=== PATIENT | male | born 1995 | race Caucasian/White ===

== ENCOUNTER 2016-11-26 00:45 | Emergency (ER) | payer BC ==
[~2016-11-26] VITALS: Ht 175.3 cm; Wt 76.7 kg
[~2016-11-26 00:45] MED LIST: ACET-1311 PO
[2016-11-26 00:49] VITALS: TEMP 36.5; Ht 175.3 cm; Wt 76.7 kg
[2016-11-26] MEDS ORDERED: LIDOCAINE/EPINEPH/TETRACAINE 1 EA SYR EXT STA (01:02)
[2016-11-26 02:04] VITALS: BP 108/70; PULSE 80; O2SAT 99
--- NOTE | 2016-11-26 04:00 | EMERGENCY ROOM VISIT NOTE ---
History First contact with patient: 00:57 Chief Complaint: HEAD INJURY (MINOR) Stated Complaint: HIT HEAD,BLEEDING History of Present Illness The patient is a 21 year old male who presents to the Emergency Room with complaints of head injury with facial laceration after he tripped while intoxicated tonight. Patient denies loss of conscious, dental pain, neck pain, chest pain, dyspnea, abdominal pain, drug use, numbness, tingling or any other medical complaints. Tetanus is current. He states he has had some alcohol. Review of Systems See HPI for pertinent positives & negatives. A total of 10 systems reviewed and were otherwise negative. Past Medical/Surgical History Medical Problems: (1) No Known Active Medical Problems Social History Smoking Status: Never Smoker Alcohol Use: occasionally Marital Status: single Housing Status: lives with family Occupation Status: student Current/Historical Medications No Active Prescriptions or Reported Meds Allergies Coded Allergies: No Known Allergies (Unverified , 11/26/16) Physical Exam Vital Signs Date Time Temp Pulse Resp B/P Pulse Ox O2 Delivery O2 Flow Rate FiO2 11/26/16 02:04 80 16 108/70 99 11/26/16 00:49 36.5 119 18 148/88 95 Room Air Pain Rating (0-10): 0 Physical Exam PHYSICAL EXAM: VITALS: Vitals are noted on the nurse's note and reviewed by myself. Vital signs stable. GENERAL: Pleasant male with EtOH odor, in no acute distress, nondiaphoretic, well-developed well-nourished. SKIN: 2.6 white eyebrow laceration that is gaping and appears clean, The rest of the skin was without obvious lacerations or abrasions. Capillary reflex less than 2 seconds. HEAD: Normocephalic EARS: External auditory canals clear, tympanic membranes pearly angulo without erythema or effusion bilaterally. No hemotympanums. No alarcon sign. No mastoid tenderness. EYES: Pupils equal round and reactive to light and accommodation. Conjunctivae with injection, sclerae without icterus. Extraocular movements intact. NOSE: Patent, turbinates without inflammation or discharge. No sinus tenderness. No septal hematoma or bleeding. FACE: No facial bone tenderness. Full range of motion of the jaw without tenderness. MOUTH: Mucous membranes moist. Pharynx without erythema or exudate. Uvula midline. Airway patent. Tongue does not deviate. NECK: Supple without nuchal rigidity. Cervical spine is nontender. Full range of motion of the neck without tenderness. No JVD. HEART: Regular rate and rhythm without murmurs gallops or rubs. LUNGS: Clear to auscultation bilaterally without wheezes, rales or rhonchi. No dullness to percussion. No retractions or accessory muscle use. No chest wall tenderness. ABDOMEN: Positive bowel sounds x 4. Normal tympanic percussion. Soft, nontender, without masses or organomegaly. No guarding or rebound tenderness. MUSCULOSKELETAL: No tenderness of the thoracic or lumbar spine. No tenderness with pelvic rocking. Full range of motion without tenderness to palpation in all extremities. NEURO: Patient was alert and oriented to person place and time. Normal sensation to light and sharp touch. No focal neurological deficits. Medical Decision & Procedures Medications Administered Medications (Trade) Dose Ordered Sig/Ramy Route Start Time Stop Time Status Last Admin Dose Admin Tetracaine/ Epinephrine/ Lidocaine (L.e.t. Gel 4%/ 1:100/0.5%) 1 ea NOW STAT EXT 11/26/16 01:02 11/26/16 01:03 DC 11/26/16 01:02 1 EA Procedure Location: right eyebrow Total length: 2.6cm Complexity: simple Verbal consent was obtained after the risks and benefits were explained, including but not limited to bleeding, scarring, infection, pain, and bone/joint /nerve damage. At this time, the risks of the procedure are less than the risks of NOT performing the procedure. A time out was taken and the correct patient and site identified. The skin was prepped with betadine. The target area was anesthetized with LET. Copious irrigation was performed using NSS. The skin was re-prepped with betadine and a sterile field set. The wound was explored for foreign bodies and none found. Examination revealed no injury to deep structures such as tendons, bone, or significant blood vessels. Debridement was not performed. The wound edges were approximated using 4, 6-0 simple interrupted nylon sutures. Hemostasis and excellent approximation was achieved. Antibacterial ointment and a sterile dressing applied. Detailed wound care instructions and signs and symptoms of infection reviewed with the pt. No complications and the patient tolerated the procedure well. ED Course Prior records/ancillary studies reviewed. Triage Nursing notes reviewed. Additional history obtained from friends. The patient's history was concerning for traumatic head injury Differential diagnosis: Etiologies such as concussion, contusion, fracture, subdural hematoma, epidural hematoma, intraparenchymal hemorrhage, as well as other traumatic pathologies were entertained. Physical examination findings: As above. ER treatment provided: Laceration repaired as above On reassessment the patient felt better. Diagnostics interpreted by me: Imaging studies: CTs were read by stat radiology and negative for fracture or bleed It appears the patient has a head injury who was intoxicated. Because of his intoxication CT imaging was ordered and was unremarkable as above. I gave my usual and customary discussion regarding this issue. Patient and friends were counseled on head injury signs and symptoms and laceration care. They're advised to follow-up health services in a few days or here in the ER sooner for headache, fevers, confusion, worsening signs or symptoms or as needed. No other injuries are noted. He was strongly encouraged no more alcohol tonight or the weekend. By the evaluation outlined above emergent etiologies such as fracture, subdural hematoma, epidural hematoma, intraparenchymal hemorrhage, as well as others were deemed relatively unlikely. The pt informed about the findings as listed above. All questions were answered and pleased with the treatment. Return instructions were outlined and the patient was discharged in stable condition. Referral: The patient was referred back to their primary care physician for follow-up in 2 to 3 days for a recheck of the current condition. Medical Decision As above Impression Primary Impression: Head injury Additional Impressions: Facial laceration Fall Departure Information Dispostion Home / Self-Care Condition GOOD Prescriptions No Active Prescriptions or Reported Meds Forms HOME CARE DOCUMENTATION FORM, IMPORTANT VISIT INFORMATION Patient Instructions [facility], ED Head Injury Closed, ED Laceration All Additional Instructions Read head injury handout and return for any symptoms. Tylenol 1000 mg as needed for pain (Maximum 3000 mg Tylenol in 24 hr period). Avoid alcohol and contact sports/activities for one week and follow up with family doctor prior to returning to these activities if still symptomatic. Ice and elevate head. Keep wound clean and dry. Do not allow any crusting or dried blood to accumulate on sutures. If this occurs, use a 1:1 solution of hydrogen peroxide/ water on a Q-tip to clean the wound. Use an antibiotic ointment for 3-4 days, then let wound dry. Suture removal in 5-7 days. Return sooner for any signs of infection (increasing redness, swelling, drainage). Ice and elevate for swelling and pain. Keep covered when in sun until sutures removed then SPF 50 or higher for one year. Vitamin E oil if desired two weeks after suture removal for reduction of scar Return to ER sooner for headache, fevers, confusion, redness, drainage, worsening signs or symptoms or as needed. Problem Qualifiers Primary Impression: Head injury Encounter type: initial encounter Qualified Codes: S09.90XA - Unspecified injury of head, initial encounter Additional Impressions: Facial laceration Encounter type: initial encounter Qualified Codes: S01.81XA - Laceration without foreign body of other part of head, initial encounter Fall Encounter type: initial encounter Qualified Codes: W19.XXXA - Unspecified fall, initial encounter
--- NOTE | 2016-11-26 06:19 | DIAGNOSTIC IMAGING REPORT ---
HEAD CT NONCONTRAST CT DOSE: 1074.96 mGy.cm HISTORY: fall, etoh, head injury TECHNIQUE: Multiaxial CT images of the head were performed without the use of intravenous contrast. Automated exposure control was utilized for this study. Comparison: None. Findings: Mild motion artifact. Mild right periorbital soft tissue swelling. The paranasal sinuses and mastoid air cells are clear. The calvarium and skull base are intact. The ventricles and sulci are within normal limits. There is no mass, hematoma, midline shift, or acute infarct. Impression: Mild motion artifact. Mild right periorbital soft tissue swelling. No definite acute intracranial abnormality. Electronically signed by: Brian Cruz M.D. 11/26/2016 6:18 AM Dictated Date/Time: 11/26/2016 6:16 AM
== END 2016-11-26 02:05 | disposition home or self-care (01) ==
LOC: C.EDB 00:46
DX: S09.90XA Unspecified injury of head, initial encounter (principal); S01.81XA Laceration without foreign body of other part of head, initial encounter; W18.09XA Striking against other object with subsequent fall, initial encounter

== ENCOUNTER 2016-12-02 13:06 | Emergency (ER) | payer BC ==
[~2016-12-02] VITALS: Ht 175.3 cm; Wt 73.9 kg
[2016-12-02 13:15] VITALS: BP 126/75; PULSE 105; TEMP 37.2; O2SAT 98; Ht 175.3 cm; Wt 73.9 kg
--- NOTE | 2016-12-02 15:20 | EMERGENCY ROOM VISIT NOTE ---
ED Visit Note First contact with patient: 13:25 CHIEF COMPLAINT: Suture removal This patient returns to the ED today for removal of sutures that were placed 7 days ago. There has been no swelling, redness, or drainage from the wound. The patient feels like the laceration is healing well. REVIEW OF SYSTEMS: Head: No headache, injury or neck pain. Skin: No rash, new lesions, or masses. General: No fever or chills, fatigue, loss of appetite , or significant recent weight gain or loss. PMH: The patient is healthy; there is no significant medical or surgical history. SOCIAL HISTORY: Patient lives at home. PHYSICAL EXAM: Vital Signs: Reviewed Nurse's notes. There is a sutured wound on the right eyebrow with no signs of infection. There is no erythema, swelling , or tenderness. EMERGENCY DEPARTMENT COURSE: The sutures were removed without any difficulty and there was no separation of the wound edges. Problem List Medical Problems: (1) No Known Active Medical Problems Status: Chronic Current/Historical Medications No Active Prescriptions or Reported Meds Allergies Coded Allergies: No Known Allergies (Unverified , 12/02/16) Vital Signs Date Time Temp Pulse Resp B/P Pulse Ox O2 Delivery O2 Flow Rate FiO2 12/02/16 13:15 37.2 105 18 126/75 98 Departure Information Impression Primary Impression: Encounter for removal of sutures Dispostion Home / Self-Care Condition GOOD Prescriptions No Active Prescriptions or Reported Meds Referrals No Doctor, Assigned (PCP) Forms HOME CARE DOCUMENTATION FORM, IMPORTANT VISIT INFORMATION Patient Instructions [facility]
== END 2016-12-02 13:45 | disposition home or self-care (01) ==
LOC: C.EDB 13:07 → C.EDD 13:45
DX: S01.111D Laceration without foreign body of right eyelid and periocular area, subsequent encounter (principal); X58.XXXD Exposure to other specified factors, subsequent encounter

== ENCOUNTER 2016-12-19 18:02 | Emergency (ER) | payer BC ==
[~2016-12-19] VITALS: Ht 175.3 cm; Wt 73.0 kg
[2016-12-19 18:13] VITALS: TEMP 37.3; Ht 175.3 cm; Wt 73.0 kg
[2016-12-19] MEDS ORDERED: IBUPROFEN 600 MG TAB PO STA (18:42)
--- NOTE | 2016-12-19 19:11 | DIAGNOSTIC IMAGING REPORT ---
LEFT WRIST 5 VIEWS HISTORY: Left wrist pain, swelling COMPARISON: None. FINDINGS: Nondisplaced transverse mid to distal scaphoid fracture. No dislocation. Mild soft tissue swelling. No radiopaque foreign bodies. IMPRESSION: Nondisplaced mid to distal scaphoid fracture. Electronically signed by: Brian Cruz M.D. 12/19/2016 7:09 PM Dictated Date/Time: 12/19/2016 7:08 PM
[2016-12-19] MEDS ORDERED: HYDR-5688 PO (19:38)
[2016-12-19] MEDS ORDERED: NORCO 5/325MG HOME PACK PO ONE (19:45)
[2016-12-19 19:57] VITALS: BP 122/76; PULSE 99; O2SAT 98
--- NOTE | 2016-12-20 21:14 | EMERGENCY ROOM VISIT NOTE ---
ED Visit Note First contact with patient: 18:33 Chief Complaint: Left wrist pain. History of Present Illness: Mr. Garcia is a 21-year-old white male who ambulates into the ED accompanied by multiple friends his mother complaining of distal radius left pain. Patient reports approximately 4 hours ago he slipped and fell in the shower onto the outstretched left hand. Since that time he is having pain over the left wrist over the distal radius. He describes his pain as a combination of sharp and throbbing. The pain is nonradiating. Her pain worsens with palpation of the distal radius and the scaphoid. His pain also worsens with flexion, extension and radial and ulnar deviation of the wrist. He has not identified any alleviating factors related to the pain. He has not taken any medications for pain prior to arrival at the hospital. He denies any associated symptoms including shoulder pain, elbow pain, proximal forearm pain, hand pain, hand/finger weakness/numbness/tingling. Additionally he denies any previous significant injuries or surgeries to the left wrist or hand. Review of Systems: As noted above in history of present illness. Past Medical History: Patient denies. Current Medications: Patient denies. Allergies to Medications: Peanuts. Social History: Patient is not currently employed; he feels safe in his home environment; he denies tobacco use and Physical Examination: Vital Signs: Date Time Temp Pulse Resp B/P Pulse Ox O2 Delivery O2 Flow Rate FiO2 12/19/16 19:57 99 20 122/76 98 12/19/16 18:13 37.3 123 18 128/74 99 Room Air GENERAL: 21-year-old male in moderate distress due to pain, nontoxic-appearing, afebrile and hemodynamically stable. NEUROLOGICAL: Awake, alert and oriented to person, place and time. Answering questions appropriately and following commands. SKIN: Warm, dry and pink. No soft tissue trauma noted. LEFT UPPER EXTREMITY: No gross bony deformity. No tenderness in the shoulder, humerus, elbow or proximal forearm. Moderate tenderness over the distal radius and any anatomical snuffbox with mild swelling but no palpable deformity or crepitus. He refused to do range of motion exercises at the wrist due to pain. There was no tenderness throughout the hand or the fingers. He was able to wiggle the fingers. Throughout the hand the skin was warm and pink and capillary refill was brisk. He was able to distinguish light sensations through all dermatomes of the hand. ED Course: Patient is assessed as noted above. Patient was given 600 mg of ibuprofen and ice for pain and comfort Left Wrist X-Rays with Navicular View: Were read by myself and the radiologist showing an displaced transverse mid to distal scaphoid fracture without dislocation and mild soft tissue swelling. Patient was placed in a thumb spica Ortho-Glass splint. Patient was educated about tonight's findings and instructed on his treatment plan; he verbalizes understanding and agreement with this plan. Clinical Impression: Left scaphoid fracture of the wrist. Disposition: Patient discharged home in stable condition accompanied by friends and his mother; prior to departure he was reassessed and subjectively reported he was feeling much better and was pain-free. Plan: Comfort measures were discussed with the patient including rest, ice, splint use and a sliding pain medication scale of ibuprofen, acetaminophen and [place]; patient was given appropriate precautions for the use of narcotics. Patient was encouraged to follow-up with his learning development specialist for definitive care and treatment. Patient was encouraged return ED for worsening/uncontrolled pain, uncontrolled swelling, wrist/hand weakness/numbness/tingling or any new/concerning symptoms.
== END 2016-12-19 19:58 | disposition home or self-care (01) ==
LOC: C.EDB 18:03 → C.EDD 19:58
DX: S62.002A Unspecified fracture of navicular [scaphoid] bone of left wrist, initial encounter for closed fracture (principal); W18.2XXA Fall in (into) shower or empty bathtub, initial encounter